=== PATIENT | female | born 1945 | race Two or more races ===

== ENCOUNTER 2018-02-01 08:36 | Emergency (ER) | payer OTHER ==
[~2018-02-01] VITALS: Ht 162.6 cm; Wt 66.2 kg
[~2018-02-01 08:36] MED LIST: COZAAR50 MG PO; FOSAMAX5 MG PO; GLUCOPHAGE XR500 MG; KETO10TA2 PO; MACROBID 100 M100 MG PO; METFORMIN HCL500 MG PO; PEPCID20 MG PO; TRICOR145 MG PO; ULTRACET PO; [UNRECOGNIZED DRUG - OTHER] PO
[2018-02-01] MEDS ORDERED: TOPROL XL50 M1 (08:54)
== END 2018-02-01 13:40 | disposition home or self-care (01) ==
LOC: ER 08:36
DX: M94.0 Chondrocostal junction syndrome [Tietze] (principal); R07.89 Other chest pain

== ENCOUNTER 2018-02-03 09:46 | Outpatient (CLI) | payer OTHER ==
[~2018-02-03 09:46] MED LIST changes: +TOPROL XL50 M1
== END 2018-02-03 17:00 | disposition home or self-care (01) ==
LOC: MAMO-SONO 09:46
DX: Z12.31 Encounter for screening mammogram for malignant neoplasm of breast (principal); N64.89 Other specified disorders of breast

== ENCOUNTER 2018-04-15 10:36 | Emergency (ER) | payer OTHER ==
[~2018-04-15] VITALS: Ht 162.6 cm; Wt 519.8 kg
[2018-04-15] MEDS ORDERED: CELEBREX100 MG PO (14:21)
== END 2018-04-15 14:39 | disposition home or self-care (01) ==
LOC: ER 10:36
DX: R07.89 Other chest pain (principal)

== ENCOUNTER 2018-07-22 11:02 | Emergency (ER) | payer OTHER ==
[~2018-07-22] VITALS: Ht 134.6 cm; Wt 66.7 kg
[~2018-07-22 11:02] MED LIST changes: +CELEBREX100 MG PO
== END 2018-07-22 14:16 | disposition home or self-care (01) ==
LOC: ER 11:02
DX: R53.81 Other malaise (principal); R06.02 Shortness of breath; F06.4 Anxiety disorder due to known physiological condition

== ENCOUNTER 2018-07-24 09:31 | Outpatient (CLI) | payer OTHER | END 2018-07-24 09:40 | disposition home or self-care (01) | LOC: LAB 09:31 | DX: I11.9 Hypertensive heart disease without heart failure (principal); E11.9 Type 2 diabetes mellitus without complications ==

== ENCOUNTER → 2018-08-01 | Outpatient (CLI) | payer OTHER | END | disposition home or self-care (01) | LOC: NUCLEAR 07:00 | DX: I25.10 Atherosclerotic heart disease of native coronary artery without angina pectoris (principal); I11.9 Hypertensive heart disease without heart failure; E11.9 Type 2 diabetes mellitus without complications | CPT/HCPCS: 78452; 93017; A9500; J0153 ==

== ENCOUNTER 2018-10-27 09:08 | Outpatient (CLI) | payer OTHER | END 2018-10-27 15:10 | disposition home or self-care (01) | LOC: LAB 09:08 | DX: E11.9 Type 2 diabetes mellitus without complications (principal); E78.2 Mixed hyperlipidemia ==

== ENCOUNTER 2018-12-18 09:30 | Outpatient (CLI) | payer OTHER | END 2018-12-18 12:31 | disposition home or self-care (01) | LOC: LAB 09:30 | DX: Z12.11 Encounter for screening for malignant neoplasm of colon (principal); R19.01 Right upper quadrant abdominal swelling, mass and lump; R97.1 Elevated cancer antigen 125 [CA 125]; Z11.4 Encounter for screening for human immunodeficiency virus [HIV] ==

== ENCOUNTER 2018-12-18 11:15 | Outpatient (CLI) | payer OTHER | END 2018-12-18 17:00 | disposition home or self-care (01) | LOC: MAMO-SONO 11:15 | DX: Z85.3 Personal history of malignant neoplasm of breast (principal); N64.4 Mastodynia ==

== ENCOUNTER 2018-12-25 11:33 | Outpatient (CLI) | payer OTHER | END 2018-12-25 11:38 | disposition home or self-care (01) | LOC: LAB 11:33 | DX: E78.49 Other hyperlipidemia (principal); R53.82 Chronic fatigue, unspecified; E55.9 Vitamin D deficiency, unspecified; A64 Unspecified sexually transmitted disease; Z12.11 Encounter for screening for malignant neoplasm of colon ==

== ENCOUNTER 2019-01-16 20:17 | Emergency (ER) | payer OTHER ==
[~2019-01-16] VITALS: Ht 152.4 cm; Wt 64.9 kg
[2019-01-17] MEDS ORDERED: CIPRO500 MG PO (02:52)
[2019-01-17] MEDS ORDERED: FLAGYL500MG PO (02:52)
[2019-01-17] MEDS ORDERED: INTESTINEX680 M1 PO (02:52)
[2019-01-17] MEDS ORDERED: LEVSIN/SL0.125 MG SL (02:52)
== END 2019-01-17 03:42 | disposition home or self-care (01) ==
LOC: ER 20:17
DX: K57.32 Diverticulitis of large intestine without perforation or abscess without bleeding (principal); R10.32 Left lower quadrant pain

== ENCOUNTER 2019-02-23 14:36 | Emergency (ER) | payer OTHER ==
[~2019-02-23] VITALS: Ht 160 cm; Wt 66.2 kg
[~2019-02-23 14:36] MED LIST changes: +CIPRO500 MG PO; +FLAGYL500MG PO; +INTESTINEX680 M1 PO; +LEVSIN/SL0.125 MG SL
== END 2019-02-23 20:12 | disposition home or self-care (01) ==
LOC: ER 14:36
DX: R07.89 Other chest pain (principal); F41.8 Other specified anxiety disorders

== ENCOUNTER 2019-07-02 10:12 | Emergency (ER) | payer OTHER ==
[~2019-07-02] VITALS: Ht 162.6 cm; Wt 60.8 kg
[2019-07-02] MEDS ORDERED: FLONASE16 GM TOP (13:29)
[2019-07-02] MEDS ORDERED: ZITHROMAX200 MG PO (13:29)
[2019-07-02] MEDS ORDERED: MOTION RELIEF25 MG PO (13:30)
== END 2019-07-02 13:48 | disposition home or self-care (01) ==
LOC: ER 10:12
DX: M85.2 Hyperostosis of skull (principal)

== ENCOUNTER 2019-11-03 10:23 | Outpatient (CLI) | payer OTHER ==
[~2019-11-03 10:23] MED LIST changes: +FLONASE16 GM TOP; +MOTION RELIEF25 MG PO; +ZITHROMAX200 MG PO
== END 2019-11-03 15:36 | disposition home or self-care (01) ==
LOC: RAD 10:23
DX: R07.89 Other chest pain (principal)

== ENCOUNTER 2020-02-03 09:46 | Outpatient (CLI) | payer OTHER | END 2020-02-03 09:59 | disposition home or self-care (01) | LOC: MAMO-SONO 09:46 | DX: Z12.31 Encounter for screening mammogram for malignant neoplasm of breast (principal); Z85.3 Personal history of malignant neoplasm of breast ==

== ENCOUNTER 2020-02-05 08:13 | Outpatient (CLI) | payer OTHER | END 2020-02-05 08:33 | disposition home or self-care (01) | LOC: LAB 08:13 | DX: E03.8 Other specified hypothyroidism (principal); D68.8 Other specified coagulation defects; E11.65 Type 2 diabetes mellitus with hyperglycemia; E11.21 Type 2 diabetes mellitus with diabetic nephropathy; R53.82 Chronic fatigue, unspecified; E78.49 Other hyperlipidemia; E55.9 Vitamin D deficiency, unspecified; D50.8 Other iron deficiency anemias ==

== ENCOUNTER 2020-02-08 09:44 | Outpatient (CLI) | payer OTHER | END 2020-02-08 09:51 | disposition home or self-care (01) | LOC: LAB 09:44 | DX: R19.09 Other intra-abdominal and pelvic swelling, mass and lump (principal); E78.49 Other hyperlipidemia; D50.8 Other iron deficiency anemias; R53.82 Chronic fatigue, unspecified; E55.9 Vitamin D deficiency, unspecified; C50.919 Malignant neoplasm of unspecified site of unspecified female breast; C54.1 Malignant neoplasm of endometrium ==

== ENCOUNTER 2020-02-12 08:22 | Outpatient (CLI) | payer OTHER | END 2020-02-12 08:27 | disposition home or self-care (01) | LOC: NUCLEAR 08:22 | PROVIDERS: ATTEND Obstetrics & Gynecology Gynecology | DX: M81.0 Age-related osteoporosis without current pathological fracture (principal) ==

== ENCOUNTER → 2020-06-04 09:16 | Outpatient (CLI) | payer OTHER | END | disposition home or self-care (01) | LOC: LAB 09:16 | PROVIDERS: ATTEND Ophthalmology | DX: D68.8 Other specified coagulation defects (principal); Z98.41 Cataract extraction status, right eye ==

== ENCOUNTER 2020-09-02 10:53 | Emergency (ER) | payer OTHER ==
[~2020-09-02] VITALS: Ht 160 cm; Wt 60.8 kg
[2020-09-02] MEDS ORDERED: PEPCID AC20 MG PO (11:10)
[2020-09-02] MEDS ORDERED: COZAAR50 MG PO (11:11)
[2020-09-02] MEDS ORDERED: METFORMIN HCL500 M3 PO (11:12)
[2020-09-02] MEDS ORDERED: VISTARIL25 MG PO (13:36)
== END 2020-09-02 13:42 | disposition home or self-care (01) ==
LOC: ER 10:53
DX: R06.02 Shortness of breath (principal); F41.8 Other specified anxiety disorders; Z03.818 Encounter for observation for suspected exposure to other biological agents ruled out

== ENCOUNTER 2021-02-06 01:54 | Emergency (ER) | payer OTHER ==
[~2021-02-06] VITALS: Ht 157.5 cm; Wt 60.8 kg
[~2021-02-06 01:54] MED LIST changes: +METFORMIN HCL500 M3 PO; +PEPCID AC20 MG PO; +VISTARIL25 MG PO
[2021-02-06] MEDS ORDERED: KETO10TA2 PO (04:40)
[2021-02-06] MEDS ORDERED: TAMS0.4C PO (04:40)
[2021-02-06] MEDS ORDERED: CIPRO500 MG PO (04:40)
[2021-02-06] MEDS ORDERED: ZOFRAN4 MG PO (05:09)
== END 2021-02-06 05:11 | disposition home or self-care (01) ==
LOC: ER 01:54
DX: N20.1 Calculus of ureter (principal); R10.32 Left lower quadrant pain

== ENCOUNTER 2021-02-28 09:27 | Outpatient (CLI) | payer OTHER ==
[~2021-02-28 09:27] MED LIST changes: +TAMS0.4C PO; +ZOFRAN4 MG PO
== END 2021-02-28 09:35 | disposition home or self-care (01) ==
LOC: MAMO-SONO 09:27
PROVIDERS: ATTEND Obstetrics & Gynecology Gynecology
DX: N64.4 Mastodynia (principal); Z85.3 Personal history of malignant neoplasm of breast

== ENCOUNTER 2021-04-02 10:50 | Emergency (ER) | payer OTHER ==
[~2021-04-02] VITALS: Ht 149.9 cm; Wt 60.8 kg
[2021-04-02] MEDS ORDERED: ZESTRIL40 M1 (11:15)
== END 2021-04-02 13:17 | disposition home or self-care (01) ==
LOC: ER 10:50
DX: S13.4XXA Sprain of ligaments of cervical spine, initial encounter (principal); M94.0 Chondrocostal junction syndrome [Tietze]; M62.838 Other muscle spasm; X50.0XXA Overexertion from strenuous movement or load, initial encounter; Y93.B2 Activity, push-ups, pull-ups, sit-ups; Y92.89 Other specified places as the place of occurrence of the external cause; Y99.8 Other external cause status

== ENCOUNTER 2021-05-03 09:40 | Outpatient (CLI) | payer OTHER ==
[~2021-05-03 09:40] MED LIST changes: +ZESTRIL40 M1
== END 2021-05-03 09:46 | disposition home or self-care (01) ==
LOC: RAD 09:40
PROVIDERS: ATTEND Internal Medicine Pulmonary Disease
DX: R05 Cough (principal)

== ENCOUNTER → 2021-05-08 | Emergency (ER) | payer OTHER ==
[~2021-05-08] VITALS: Ht 134.6 cm; Wt 60.8 kg
== END | disposition home or self-care (01) ==
LOC: ER 13:17
DX: R07.89 Other chest pain (principal)

== ENCOUNTER 2021-07-04 07:19 | Outpatient (CLI) | payer OTHER | END 2021-07-04 07:22 | disposition home or self-care (01) | LOC: NUCLEAR 07:19 | PROVIDERS: ATTEND Internal Medicine Cardiovascular Disease | DX: R07.89 Other chest pain (principal) | CPT/HCPCS: 78452; 93017; A9500; J0153 ==

== ENCOUNTER 2021-08-21 17:17 | Emergency (ER) | payer OTHER ==
[~2021-08-21] VITALS: Ht 127 cm; Wt 64.9 kg
== END 2021-08-21 19:50 | disposition home or self-care (01) ==
LOC: ER 17:17
DX: M94.0 Chondrocostal junction syndrome [Tietze] (principal)

== ENCOUNTER 2022-02-14 07:25 | Outpatient (CLI) | payer OTHER | END 2022-02-14 07:28 | disposition home or self-care (01) | LOC: LAB 07:25 | PROVIDERS: ATTEND Internal Medicine Cardiovascular Disease | DX: I11.9 Hypertensive heart disease without heart failure (principal); E78.00 Pure hypercholesterolemia, unspecified; E11.9 Type 2 diabetes mellitus without complications ==

== ENCOUNTER 2022-03-06 07:51 | Outpatient (CLI) | payer OTHER | END 2022-03-06 07:58 | disposition home or self-care (01) | LOC: MAMO-SONO 07:51 | PROVIDERS: ATTEND Obstetrics & Gynecology Gynecology | DX: Z12.31 Encounter for screening mammogram for malignant neoplasm of breast (principal); Z85.3 Personal history of malignant neoplasm of breast ==

== ENCOUNTER 2022-07-09 11:05 | Emergency (ER) | payer OTHER ==
[~2022-07-09] VITALS: Ht 162.6 cm; Wt 59.9 kg
[2022-07-09] MEDS ORDERED: UTIX PO (17:26)
== END 2022-07-09 17:46 ==
LOC: ER 11:05
DX: R10.2 Pelvic and perineal pain (principal); N39.0 Urinary tract infection, site not specified; R30.0 Dysuria; R10.9 Unspecified abdominal pain; I10 Essential (primary) hypertension; E11.9 Type 2 diabetes mellitus without complications; Z79.84 Long term (current) use of oral hypoglycemic drugs

== ENCOUNTER 2022-09-02 13:46 | Emergency (ER) | payer OTHER ==
[~2022-09-02] VITALS: Ht 157.5 cm; Wt 60.3 kg
[~2022-09-02 13:46] MED LIST changes: +UTIX PO
== END 2022-09-02 22:58 | disposition home or self-care (01) ==
LOC: ER 13:46
DX: M94.0 Chondrocostal junction syndrome [Tietze] (principal); I10 Essential (primary) hypertension; E11.9 Type 2 diabetes mellitus without complications; Z79.84 Long term (current) use of oral hypoglycemic drugs; Z85.3 Personal history of malignant neoplasm of breast; Z20.822 Contact with and (suspected) exposure to COVID-19

== ENCOUNTER → 2022-10-18 12:10 | Outpatient (CLI) | payer OTHER | END | disposition home or self-care (01) | LOC: LAB 12:10 | PROVIDERS: ATTEND Obstetrics & Gynecology Gynecology | DX: N39.0 Urinary tract infection, site not specified (principal) ==

== ENCOUNTER 2023-08-07 09:33 | Emergency (ER) | payer OTHER ==
[~2023-08-07] VITALS: Ht 160 cm; Wt 60.8 kg
== END 2023-08-07 18:21 | disposition home or self-care (01) ==
LOC: ER 09:33
DX: R53.81 Other malaise (principal); I10 Essential (primary) hypertension; Z90.10 Acquired absence of unspecified breast and nipple; M94.0 Chondrocostal junction syndrome [Tietze]
CPT/HCPCS: 71046; 71250; 96372; 99284; J1885

== ENCOUNTER 2024-08-25 09:36 | Outpatient (CLI) | payer OTHER | END 2024-08-25 09:46 | disposition home or self-care (01) | LOC: TOM 09:36 | PROVIDERS: ATTEND Internal Medicine Pulmonary Disease | DX: R91.1 Solitary pulmonary nodule (principal) ==

== ENCOUNTER 2024-10-21 09:50 | Outpatient (CLI) | payer OTHER | END 2024-10-21 09:57 | disposition home or self-care (01) | LOC: MAMO-SONO 09:50 | PROVIDERS: ATTEND Obstetrics & Gynecology Gynecology | DX: Z85.3 Personal history of malignant neoplasm of breast (principal); N64.9 Disorder of breast, unspecified ==

== ENCOUNTER 2024-12-14 11:58 | Outpatient (CLI) | payer OTHER | END 2024-12-14 12:05 | disposition home or self-care (01) | LOC: SONOGRAMA 11:58 | PROVIDERS: ATTEND Internal Medicine | DX: N20.0 Calculus of kidney (principal); N20.1 Calculus of ureter ==

== ENCOUNTER 2025-08-24 10:38 | Outpatient (CLI) | payer OTHER | END 2025-08-24 10:44 | disposition home or self-care (01) | LOC: TOM 10:38 | PROVIDERS: ATTEND Internal Medicine Pulmonary Disease | DX: R91.1 Solitary pulmonary nodule (principal) ==